=== PATIENT | male | born 1975 | race Caucasian/White ===

== ENCOUNTER → 2018-08-19 12:52 | Outpatient (CLI) | payer OTHER, SELFPAY ==
--- NOTE | 2018-08-19 12:54 | DI.RAD.S_ITS ---
PROCEDURE: XR CHEST 2V INDICATIONS: Cough and fever TECHNIQUE: 2 views of the chest were acquired. COMPARISON: [facility], , CHEST 2 VIEW, 08/22/2013, 11:30. FINDINGS: Surgical changes and devices: None. Lungs and pleura: No pleural effusions or pneumothorax. Lungs are clear. Mediastinum: Mediastinal contours are normal. Heart size is normal. Bones and chest wall: No suspicious bony abnormalities. Soft tissues appear unremarkable. IMPRESSION: No acute disease Dictated by: Brandon Salinas M.D. on 08/19/2018 at 13:30 Approved by: Brandon Salinas M.D. on 08/19/2018 at 13:31
== END ==
PROVIDERS: Visit Provider Physician Assistant
DX: R05 Cough (principal); R50.9 Fever, unspecified
CPT/HCPCS: 71046

== ENCOUNTER → 2019-01-14 11:49 | Outpatient (CLI) | payer OTHER, SELFPAY | PROVIDERS: Visit Provider Physician Assistant | DX: R68.89 Other general symptoms and signs (principal); J02.9 Acute pharyngitis, unspecified; R05 Cough | CPT/HCPCS: 87070; 87400 ==

== ENCOUNTER → 2019-01-14 12:15 | Outpatient (CLI) | payer OTHER, SELFPAY ==
--- NOTE | 2019-01-14 12:17 | DI.RAD.S_ITS ---
PROCEDURE: XR CHEST 2V INDICATIONS: persistent cough with worsening fever TECHNIQUE: 2 views of the chest were acquired. [facility]. [facility], [facility], XR CHEST 2V, 08/19/2018, 12:52. FINDINGS: Surgical changes and devices: None. Lungs and pleura: Lungs are clear. No pleural effusions or pneumothorax. Mediastinum: Mediastinal contours are normal. Heart size is normal. Bones and chest wall: No suspicious bony abnormalities. Soft tissues appear unremarkable. IMPRESSION: No acute cardiopulmonary disease. Dictated by: Emmy Stock M.D. on 01/14/2019 at 12:51 Approved by: Emmy Stock M.D. on 01/14/2019 at 12:51
== END ==
PROVIDERS: Visit Provider Physician Assistant
DX: R05 Cough (principal); R50.9 Fever, unspecified; J02.9 Acute pharyngitis, unspecified; R68.89 Other general symptoms and signs
CPT/HCPCS: 71046; 87070; 87400

== ENCOUNTER → 2021-02-14 12:08 | Outpatient (CLI) | payer OTHER, SELFPAY ==
[2021-02-14] MEDS: COVID-19 VACC #1, MRNA(MOD) 100 MCG/0.5 ML VIAL IM (12:13)
== END ==
PROVIDERS: Visit Provider Internal Medicine
DX: Z23 Encounter for immunization (principal)
CPT/HCPCS: 0011A; 91301

== ENCOUNTER → 2021-03-14 09:05 | Outpatient (CLI) | payer OTHER, SELFPAY ==
[2021-03-14] MEDS: COVID-19 VACC #2, MRNA(MOD) 100 MCG/0.5 ML VIAL IM (09:09)
== END ==
PROVIDERS: Visit Provider Internal Medicine
DX: Z23 Encounter for immunization (principal)
CPT/HCPCS: 0012A; 91301